=== PATIENT | male | born 1965 | race Two or more races ===

== ENCOUNTER 2018-01-14 09:26 | Day surgery (SDC) | payer OTHER ==
[2018-01-14] MEDS ORDERED: PROPOFOL 40 ML (11:30)
[2018-01-14] MEDS ORDERED: LIDOCAINE 2% (SDV) 5 ML INJ (11:31)
== END 2018-01-14 12:17 | disposition home or self-care (01) ==
LOC: GIL 09:26
DX: Z12.11 Encounter for screening for malignant neoplasm of colon (principal); D12.6 Benign neoplasm of colon, unspecified; K64.8 Other hemorrhoids; I10 Essential (primary) hypertension
CPT/HCPCS: 45380; 88305